=== PATIENT | female | born 1970 | race Caucasian/White ===

== ENCOUNTER → 2023-11-12 | Day surgery (SDC) | payer MEDICAID ==
[~2023-11-12] VITALS: Ht 152.4 cm; Wt 72.6 kg
[~2023-11-12] MED LIST: ACETAMINOPHEN 325MG TABLET PO PRN; ASPI-1160 PO; ATROPINE SULFATE 1MG/10ML SYR ONE; CEFAZOLIN SODIUM 1000MG/VIAL IV SCH; CEFAZOLIN SODIUM 1000MG/VIAL ONE; FENTANYL CITRATE/PF 50MCG/ML 2ML VIAL ONE; GENTAMICIN SULF 40MG/ML 2ML VIAL ONE; GENTAMICIN/NS IRRIGATION 500 ML IR SCH; HYDROCODONE/ACETAMINOPHEN 5/325MG TABLET PO ONE; LIDOCAINE HCL 1% 20ML VIAL (Pyxis) INJ ONE; LISI40TA13 PO; MIDAZOLAM HCL 2 MG/2 ML VIAL ONE; ONDANSETRON HCL 4MG/2ML INJ ONE; SIMV10TA97 PO
[2023-11-12 08:00] LABS: CHLORIDE 105 mEq/L (98-107); POTASSIUM 4.8 mEq/L (3.5-5.1); SODIUM 137 mEq/L (136-145)
[2023-11-12 08:01] LABS: CALCIUM 9.5 mg/dL (8.7-10.4); CARBON DIOXIDE 28 mEq/L (21-32)
[2023-11-12 08:02] LABS: BASOPHILS % 0.5 % (0.0-2.0); EOSINOPHILS % 3.8 % (0.0-5.0); HEMATOCRIT. 38.2 % (36.0-48.0); HEMOGLOBIN. 12.7 g/dL (12.0-16.0); LYMPHOCYTES % 48.1 % (20.0-50.0); MEAN CORPUSCULAR HGB CONC 33.3 g/dL (31.0-37.0); MEAN CORPUSCULAR VOLUME 87.3 fL (81.0-99.0); MEAN PLATELET VOLUME 6.6 fl (7.4-10.4); MONOCYTES % 12.7 % (2.0-8.0); NEUTROPHILS % 34.9 % (40.0-76.0); PLATELET 286 x1000/uL (130-400); RED BLOOD CELL COUNT 4.38 mill/uL (4.2-5.4); WHITE BLOOD COUNT 5.2 x1000/uL (4.5-11.0)
[2023-11-12 08:06] LABS: CREATININE 0.7 mg/dL (0.6-1.0); GLUCOSE 95 mg/dL (70-105); UREA NITROGEN BLOOD 15 mg/dL (9-23)
[2023-11-12] MEDS: ACETAMINOPHEN 325MG TABLET PO PRN (12:28)
[2023-11-12] MEDS: CEFAZOLIN 1000MG PREMIX 50 ML IV SCH ×2 (13:03→13:37)
== END | disposition home or self-care (01) ==
LOC: CCL 06:58
PROVIDERS: ATTEND Internal Medicine Cardiovascular Disease
DX: R07.89 Other chest pain (principal); I10 Essential (primary) hypertension; E78.5 Hyperlipidemia, unspecified; Z95.0 Presence of cardiac pacemaker; Z79.82 Long term (current) use of aspirin; Z79.899 Other long term (current) drug therapy; Z88.6 Allergy status to analgesic agent; Z98.890 Other specified postprocedural states
CPT/HCPCS: 33222; 71045; 80048; 85025; 93005; J3010; J0461; J0690; J1580; J3490; J2250; J2405; 36415